=== PATIENT | female | born 1955 | race Caucasian/White ===

== ENCOUNTER 2017-10-27 10:31 | Emergency (ER) | payer BC ==
[~2017-10-27] VITALS: Ht 170.2 cm; Wt 90.0 kg
[2017-10-27 10:32] VITALS: BP 157/85; PULSE 99; RESP 20; TEMP 99.2; O2SAT 99
[2017-10-27] MEDS ORDERED: IOHEXOL 350 MG/ML 10 ML VIAL (for RAD DIAG) IVCONTRAST ONE (10:32)
[2017-10-27] MEDS ORDERED: SIMV40TA PO (10:59)
[2017-10-27] MEDS ORDERED: ENAL2.5T PO (10:59)
[2017-10-27] MEDS ORDERED: PROT40TA PO (10:59)
[2017-10-27] MEDS ORDERED: ASPI81CH6 CHEW (10:59)
[2017-10-27] MEDS ORDERED: PRED5TAB PO (10:59)
[2017-10-27] MEDS ORDERED: SODIUM CHLOR 0.9% 1000 ML INJ 1,000 ML IV SCH (11:26)
--- NOTE | 2017-10-27 11:28 | PD ---
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 Patient states that she has a history of diverticulosis but has never had diverticulitis before. No fevers states the pain is mild, left lower quadrant without radiation, associated signs symptoms context as above. States pain started last night is been gradually worsening. PFSH Past Medical History Influenza Vaccination: No ?: Not Past Surgical History Cholecystectomy: Yes Coronary Artery Bypass Graft: Yes (x3) Hysterectomy: Yes (parital ) Social History Alcohol Use: Yes (socially ) Tobacco Use: Yes (vape) Substance Use: No Allergies-Medications (Allergen,Severity, Reaction): Coded Allergies: No Known Allergies (Verified Allergy, Unknown, 10/27/17) Reported Meds & Prescriptions Reported Meds & Active Scripts Active Zofran (Ondansetron HCl) 4 Mg Tab 4 Mg PO Q6HR PRN Ultram (Tramadol HCl) 50 Mg Tab 50 Mg PO Q6H PRN Bentyl (Dicyclomine HCl) 10 Mg Cap 10 Mg PO TID PRN Flagyl (Metronidazole) 500 Mg Tab 500 Mg PO BID 7 Days Ciprofloxacin (Ciprofloxacin HCl) 500 Mg Tab 500 Mg PO BID 7 Days Reported Enalapril (Enalapril Maleate) 2.5 Mg Tab 2.5 Mg PO DAILY Aspirin Low Dose (Aspirin) 81 Mg Chew 81 Mg CHEW DAILY Prednisone 5 Mg Tab 5 Mg PO DAILY Protonix (Pantoprazole Sodium) 40 Mg Tab 40 Mg PO DAILY Simvastatin 40 Mg Tab 40 Mg PO HS Review of Systems Except as stated in HPI: all other systems reviewed are Neg Physical Exam Narrative GENERAL: Well-developed well-nourished no obvious distress SKIN: Focused skin assessment warm/dry. HEAD: Atraumatic. Normocephalic. EYES: Pupils equal and round. No scleral icterus. No injection or drainage. ENT: No nasal bleeding or discharge. Mucous membranes pink and moist. NECK: Trachea midline. No JVD. CARDIOVASCULAR: Regular rate and rhythm. No murmur appreciated. RESPIRATORY: No accessory muscle use. Clear to auscultation. Breath sounds equal bilaterally. GASTROINTESTINAL: Abdomen soft, moderate tenderness left lower quadrant without any rebound or percussive tenderness., nondistended. Hepatic and splenic margins not palpable. No CVA tenderness. MUSCULOSKELETAL: No obvious deformities. No clubbing. No cyanosis. No edema. NEUROLOGICAL: Awake and alert. No obvious cranial nerve deficits. Motor grossly within normal limits. Normal speech. PSYCHIATRIC: Appropriate mood and affect; insight and judgment normal. Data Data Last Documented VS Vital Signs Date Time Temp Pulse Resp B/P (MAP) Pulse Ox O2 Delivery O2 Flow Rate FiO2 10/27/17 14:11 10/27/17 10:32 99.2 99 20 99 Room Air Orders Orders Complete Blood Count With Diff (10/27/17 11:26) Comprehensive Metabolic Panel (10/27/17 11:26) Lipase (10/27/17 11:26) Prothrombin Time / Inr (Pt) (10/27/17 11:26) Act Partial Throm Time (Ptt) (10/27/17 11:26) Urinalysis - C+S If Indicated (10/27/17 11:26) Ct Abd/Pel W Iv Contrast(Rout) (10/27/17 11:26) Iv Access Insert/Monitor (10/27/17 11:26) Ecg Monitoring (10/27/17 11:26) Oximetry (10/27/17 11:26) Ondansetron Inj (Zofran Inj) (10/27/17 11:30) Sodium Chlor 0.9% 1000 Ml Inj (Ns 1000 M (10/27/17 11:26) Sodium Chloride 0.9% Flush (Ns Flush) (10/27/17 11:30) Electrocardiogram (10/27/17 11:26) Ketorolac Inj (Toradol Inj) (10/27/17 11:30) Urine Culture (10/27/17 11:40) Iohexol 350 Inj (Omnipaque 350 Inj) (10/27/17 10:32) Oxycodone-Acetamin 5-325 Mg (Percocet (10/27/17 13:45) Ed Discharge Order (10/27/17 13:40) Labs Laboratory Tests Test 10/27/17 11:37 10/27/17 11:40 White Blood Count 9.8 TH/MM3 Red Blood Count 4.71 MIL/MM3 Hemoglobin 14.2 GM/DL Hematocrit 42.9 % Mean Corpuscular Volume 91.2 FL Mean Corpuscular Hemoglobin 30.1 PG Mean Corpuscular Hemoglobin Concent 33.0 % Red Cell Distribution Width 14.0 % Platelet Count 333 TH/MM3 Mean Platelet Volume 8.9 FL Neutrophils (%) (Auto) 71.6 % Lymphocytes (%) (Auto) 15.6 % Monocytes (%) (Auto) 8.9 % Eosinophils (%) (Auto) 2.8 % Basophils (%) (Auto) 1.1 % Neutrophils # (Auto) 7.0 TH/MM3 Lymphocytes # (Auto) 1.5 TH/MM3 Monocytes # (Auto) 0.9 TH/MM3 Eosinophils # (Auto) 0.3 TH/MM3 Basophils # (Auto) 0.1 TH/MM3 CBC Comment DIFF FINAL Differential Comment Prothrombin Time 10.0 SEC Prothromb Time International Ratio 1.0 RATIO Activated Partial Thromboplast Time 25.0 SEC Blood Urea Nitrogen 15 MG/DL Creatinine 0.75 MG/DL Random Glucose 148 MG/DL Total Protein 7.2 GM/DL Albumin 3.3 GM/DL Calcium Level 8.5 MG/DL Alkaline Phosphatase 108 U/L Aspartate Amino Transf (AST/SGOT) 14 U/L Alanine Aminotransferase (ALT/SGPT) 24 U/L Total Bilirubin 0.3 MG/DL Sodium Level 139 MEQ/L Potassium Level 4.3 MEQ/L Chloride Level 105 MEQ/L Carbon Dioxide Level 27.1 MEQ/L Anion Gap 7 MEQ/L Estimat Glomerular Filtration Rate 78 ML/MIN Lipase 116 U/L Urine Color YELLOW Urine Turbidity HAZY Urine pH 6.0 Urine Specific Hawks 1.010 Urine Protein NEG mg/dL Urine Glucose (UA) NEG mg/dL Urine Ketones NEG mg/dL Urine Occult Blood NEG Urine Nitrite POS Urine Bilirubin NEG Urine Urobilinogen LESS THAN 2.0 MG/DL Urine Leukocyte Esterase LARGE Urine RBC 5 /hpf Urine WBC 43 /hpf Urine WBC Clumps OCC Urine Squamous Epithelial Cells 15 /hpf Urine Bacteria MANY /hpf Urine Mucus FEW /lpf Microscopic Urinalysis Comment CULTURE INDICATED MDM Medical Decision Making Medical Screen Exam Complete: Yes Emergency Medical Condition: Yes Differential Diagnosis Gastritis, gastroenteritis, diverticulitis, diverticular abscess, sepsis seems unlikely, UTI. Narrative Course Patient roomed in the emergency department, has blood work suggestive of UTI but the patient has not had any dysuria. She is moderately tender and has not presented to the emergency department and some years according to her, think it CAT scan is indicated to rule out a diverticular abscess. Last 24 hours Impressions Abdomen/Pelvis CT 10/27/17 1126 Signed Impressions: Service Date/Time: October 12:52 - CONCLUSION: 1. The above findings are diagnostic of a mild proximal sigmoid acute diverticulitis. No abscess, free air, or free fluid is present. 2. There is an 8mm right adrenal gland nodule that does not meet criteria for an adenoma on this study. The small size favors a benign process. Suggest correlating with prior studies to confirm stability. 3. Nonacute findings include severe atherosclerotic disease and hepatic steatosis. Todd Muse MD Discussed the findings with the patient and discussed follow-up with her primary care physician for the 8mm right adrenal gland nodule as well as continue not smoking and follow up with her primary care physician for atherosclerotic disease. She is feeling better after medications given in the emergency department but would like something stronger and therefore by mouth narcotic given. Discussed symptomatic management returned ED criteria. She stable for discharge. Diagnosis Primary Impression: Diverticulitis Additional Impression: Urinary tract infection Med/Other Pt SpecificInfo: Prescription(s) given Scripts Ondansetron (Zofran) 4 Mg Tab 4 MG PO Q6HR Y for NAUSEA OR VOMITING, #20 TAB 0 Refills Prov: Javier Cui MD 10/27/17 Tramadol (Ultram) 50 Mg Tab 50 MG PO Q6H Y for PAIN, #10 TAB 0 Refills Prov: Javier Cui MD 10/27/17 Dicyclomine (Bentyl) 10 Mg Cap 10 MG PO TID Y for ABDOMINAL CRAMPING, #20 CAP 0 Refills Prov: Javier Cui MD 10/27/17 Metronidazole (Flagyl) 500 Mg Tab 500 MG PO BID for Infection for 7 Days, #14 TAB 0 Refills Prov: Javier Cui MD 10/27/17 Ciprofloxacin (Ciprofloxacin) 500 Mg Tab 500 MG PO BID for Infection for 7 Days, #14 TAB 0 Refills Prov: Javier Cui MD 10/27/17 Disposition: 01 DISCHARGE HOME Condition: Stable Javier Cui MD Oct 27, 2017 11:28
[2017-10-27] MEDS ORDERED: KETOROLAC TROMETHAMINE 30 MG/ML (IVP) VIAL IVP ONE (11:30)
[2017-10-27] MEDS ORDERED: SODIUM CHLORIDE 0.9% FLUSH 10 ML FLUSH IV FLUSH PRN (11:30)
[2017-10-27] MEDS ORDERED: ONDANSETRON HCL 4 MG/2 ML VIAL IVP ONE (11:30)
[2017-10-27 11:49] LABS: BASOPHIL # 0.1 TH/MM3 (0-0.2); BASOPHIL % 1.1 % (0.0-2.0); EOSINOPHIL # 0.3 TH/MM3 (0-0.4); EOSINOPHIL % 2.8 % (0.0-4.0); HEMATOCRIT 42.9 % (35.0-46.0); HEMOGLOBIN 14.2 GM/DL (11.6-15.3); LYMPH % 15.6 % (9.0-44.0); LYMPHOCYTE # 1.5 TH/MM3 (1.0-4.8); MEAN CELL VOLUME 91.2 FL (80.0-100.0); MEAN CORPUSCULAR HEMOGLOBIN 30.1 PG (27.0-34.0); MEAN PLATELET VOLUME 8.9 FL (7.0-11.0); MONO % 8.9 % (0.0-8.0); MONOCYTE # 0.9 TH/MM3 (0-0.9); NEUT % 71.6 % (16.0-70.0); PLATELET COUNT 333 TH/MM3 (150-450); RED BLOOD COUNT 4.71 MIL/MM3 (4.00-5.30); WHITE BLOOD COUNT 9.8 TH/MM3 (4.0-11.0)
[2017-10-27 11:53] LABS: BACTERIA, URINE MANY /hpf; BILIRUBIN, URINE NEG (NEG); BLOOD, URINE NEG (NEG); GLUCOSE,URINE NEG (NEG); KETONE, URINE NEG (NEG); MUCUS URINE FEW /lpf (OCC); NITRITE,URINE POS (NEG); SQUAMOUS EPITHELIAL CELL URINE 15 /hpf (0-5); URINE COLOR YELLOW (YELLW/STRAW); URINE LEUKOCYTE ESTERASE LARGE (NEG); WHITE BLOOD CELL CLUMPS OCC
[2017-10-27 12:23] LABS: ALBUMIN 3.3 GM/DL (3.4-5.0); ALT (GPT) 24 U/L (10-53); AST (GOT) 14 U/L (15-37); BICARBONATE 27.1 MEQ/L (21.0-32.0); BLOOD UREA NITROGEN 15 MG/DL (7-18); CALCIUM 8.5 MG/DL (8.5-10.1); CHLORIDE 105 MEQ/L (98-107); CREATININE 0.75 MG/DL (0.50-1.00); GLOMERULAR FILTRATION RATE 78 ML/MIN (>89); GLUCOSE,RANDOM 148 MG/DL (74-106); LIPASE 116 U/L (73-393); SODIUM (NA) 139 MEQ/L (136-145)
[2017-10-27 12:26] LABS: ALKALINE PHOSPHATASE 108 U/L (45-117); TOTAL BILIRUBIN ADULT 0.3 MG/DL (0.2-1.0); TOTAL PROTEIN 7.2 GM/DL (6.4-8.2)
--- NOTE | 2017-10-27 13:21 | RADRPT ---
EXAM DATE/TIME: 10/27/2017 12:52 [facility] COMPARISON: No previous studies available for comparison. INDICATIONS : Left lower abdomen pain, radiating to right side. IV CONTRAST: 81 cc Omnipaque 350 (iohexol) IV ORAL CONTRAST: No oral contrast ingested. RADIATION DOSE: 15.70 CTDIvol (mGy) MEDICAL HISTORY : Cardiovascular disease. SURGICAL HISTORY : CABG , hysterectomy, cholecystectomy. ENCOUNTER: Initial ACUITY: 4 - 6 days PAIN SCALE: 7/10 LOCATION: [facility] TECHNIQUE: Volumetric scanning of the abdomen and pelvis was performed. Using automated exposure control and ad justment of the mA and/or kV according to patient size, radiation dose was kept as low as reasonably achievable to obtain optimal diagnostic quality images. DICOM format image data is available electro nically for review and comparison. FINDINGS: LOWER LUNGS: The visualized lower lungs are clear. LIVER: Liver density is suggested stenosis. No focal lesion is seen. There is a punctate calcification in th e right lobe. The gallbladder fossa there is a 13 mm cyst. Patient is post cholecystectomy. There is no dilation of the biliary tree. SPLEEN: Normal size without lesion. PANCREAS: Within normal limits. KIDNEYS: Normal in size and shape. There is no mass, stone or hydronephrosis. ADRENAL GLANDS: There is an 8mm right adrenal gland nodule with Hounsfield measurements of 14. There is mild thickeni ng of the body of the left adrenal gland. VASCULAR: There is severe atherosclerotic disease of aorta with ectasia. No aneurysm is present. BOWEL/MESENTERY: The stomach and small bowel demonstrate no abnormality. There is colonic diverticulosis, most severe in the sigmoid colon region. A short segment of the proximal sigmoid colon demonstrates mild wall thi ckening and pericolic inflammation. There is no free air or free fluid. ABDOMINAL WALL: Within normal limits. RETROPERITONEUM: There is no lymphadenopathy. BLADDER: No wall thickening or mass. REPRODUCTIVE: The uterus is absent. INGUINAL: There is no lymphadenopathy or hernia. MUSCULOSKELETAL: There are degenerative changes of the lumbar spine. CONCLUSION: 1. The above findings are diagnostic of a mild proximal sigmoid acute diverticulitis. No abscess, beti e air, or free fluid is present. 2. There is an 8mm right adrenal gland nodule that does not meet criteria for an adenoma on this stud y. The small size favors a benign process. Suggest correlating with prior studies to confirm stabilit y. 3. Nonacute findings include severe atherosclerotic disease and hepatic steatosis. Todd Muse MD on October 27, 2017 at 13:13 Board Certified Radiologist. This report was verified electronically.
[2017-10-27] MEDS ORDERED: DICY10 PO (13:39)
[2017-10-27] MEDS ORDERED: CIPR500T2 PO (13:39)
[2017-10-27] MEDS ORDERED: ZOFR4TAB PO (13:39)
[2017-10-27] MEDS ORDERED: METR-1 PO (13:39)
[2017-10-27] MEDS ORDERED: TRAM50 PO (13:39)
[2017-10-27] MEDS ORDERED: oxyCODONE/ACETAMINOPHEN 5 MG/325 MG TAB PO ONE (13:45)
--- NOTE | 2017-10-27 19:52 | EKG ---
Date Performed: 10/27/2017 Time Performed: 12:41:36 PTAGE: 61 years EKG: Baseline artifact present Sinus rhythm possible SEPTAL MYOCARDIAL INFARCTION ABNORMAL ECG NO PREVIOUS TRACING DOCTOR: Zion Pedro Interpretating Date/Time 10/27/2017 19:51:09
[2017-10-31] MEDS ORDERED: NORC5TAB PO (17:23)
== END 2017-10-27 14:18 | disposition home or self-care (01) ==
LOC: NEPD 10:31
DX: K57.92 Diverticulitis of intestine, part unspecified, without perforation or abscess without bleeding (principal); N39.0 Urinary tract infection, site not specified; R11.2 Nausea with vomiting, unspecified; B96.20 Unspecified Escherichia coli [E. coli] as the cause of diseases classified elsewhere; R94.31 Abnormal electrocardiogram [ECG] [EKG]; I70.90 Unspecified atherosclerosis; K76.0 Fatty (change of) liver, not elsewhere classified
CPT/HCPCS: 74177; 80053; 81001; 83690; 85025; 85610; 85730; 87077; 87086; 87186; 93005; 96361; 96374; 96375; 99285; J1885; J2405; J7030; Q9967

== ENCOUNTER 2017-10-31 12:33 | Emergency (ER) | payer BC ==
[2017-10-31 13:39] LABS: AUTOMATED NEUTROPHIL # 5.1 TH/MM3 (1.8-7.7); BASOPHIL # 0.1 TH/MM3 (0-0.2); BASOPHIL % 1.2 % (0.0-2.0); EOSINOPHIL # 0.3 TH/MM3 (0-0.4); EOSINOPHIL % 3.3 % (0.0-4.0); HEMATOCRIT 43.7 % (35.0-46.0); HEMO FLAGS DIFF FINAL; HEMOGLOBIN 14.2 GM/DL (11.6-15.3); LYMPH % 22.8 % (9.0-44.0); LYMPHOCYTE # 1.8 TH/MM3 (1.0-4.8); MEAN CELL VOLUME 91.1 FL (80.0-100.0); MEAN CORPUSCULAR HEMOGLOBIN 29.7 PG (27.0-34.0); MEAN CORPUSCULAR HGB CONC 32.6 % (32.0-36.0); MEAN PLATELET VOLUME 9.5 FL (7.0-11.0); MONO % 7.3 % (0.0-8.0); MONOCYTE # 0.6 TH/MM3 (0-0.9); NEUT % 65.4 % (16.0-70.0); PLATELET COUNT 350 TH/MM3 (150-450); RED BLOOD COUNT 4.79 MIL/MM3 (4.00-5.30); RED CELL DISTRIBUTION WIDTH 13.9 % (11.6-17.2); WHITE BLOOD COUNT 7.8 TH/MM3 (4.0-11.0)
[2017-10-31 13:50] LABS: PROTHROMBIN TIME - PATIENT 10.5 SEC (9.8-11.6)
[2017-10-31 13:59] LABS: ALBUMIN 3.4 GM/DL (3.4-5.0); ALT (GPT) 37 U/L (10-53); ANION GAP 8 MEQ/L (5-15); AST (GOT) 32 U/L (15-37); BICARBONATE 27.5 MEQ/L (21.0-32.0); BLOOD UREA NITROGEN 15 MG/DL (7-18); CALCIUM 9.1 MG/DL (8.5-10.1); CHLORIDE 102 MEQ/L (98-107); GLOMERULAR FILTRATION RATE 72 ML/MIN (>89); GLUCOSE,RANDOM 151 MG/DL (74-106); LIPASE 74 U/L (73-393); POTASSIUM 4.3 MEQ/L (3.5-5.1); SODIUM (NA) 137 MEQ/L (136-145)
[2017-10-31 14:02] LABS: ALKALINE PHOSPHATASE 98 U/L (45-117); TOTAL BILIRUBIN ADULT 0.2 MG/DL (0.2-1.0); TOTAL PROTEIN 7.4 GM/DL (6.4-8.2)
[2017-10-31] MEDS ORDERED: SODIUM CHLORIDE 0.9% FLUSH 10 ML FLUSH IV FLUSH (15:45)
[2017-10-31] MEDS: SODIUM CHLOR 0.9% 1000 ML INJ 1,000 ML IV (16:13)
[2017-10-31] MEDS: MORPHINE SULFATE 2 MG/ML INJ IV PUSH (16:13)
[2017-10-31] MEDS: ONDANSETRON HCL 4 MG/2 ML VIAL IVP (16:14)
[2017-10-31] MEDS: IOHEXOL 350 MG/ML 10 ML VIAL (for RAD DIAG) IVCONTRAST (16:50)
== END 2017-10-31 17:55 | disposition home or self-care (01) ==
LOC: NEPC 12:33
DX: K57.32 Diverticulitis of large intestine without perforation or abscess without bleeding (principal); N30.00 Acute cystitis without hematuria; Z72.0 Tobacco use
CPT/HCPCS: 74177; 80053; 83690; 85025; 85610; 85730; 96361; 96374; 96375; 99285-25

== ENCOUNTER → 2018-01-16 | Outpatient (CLI) | payer BC ==
[~2018-01-16] MED LIST: ASPI81CH6 CHEW; CIPR500T2 PO; DICY10 PO; ENAL2.5T PO; METR-1 PO; NORC5TAB PO; PRED5TAB PO; PROT40TA PO; SIMV40TA PO; TRAM50 PO; ZOFR4TAB PO
--- NOTE | 2018-01-17 10:44 | RSPPFT ---
DATE OF PROCEDURE: 01/16/18 COMMENTS: Spirometry shows FVC of 3.3 at 102% of predicted, FEV1 of 2.5 at 98%, FEV1/FVC ratio is normal. Flow is normal at FEF 25, FEF 50, FEF 75 and FEF 25-75. There is no response after bronchodilator treatment. Flow volume loop indicates a normal pattern. IMPRESSION: 1. Normal spirometry. 2. No response to bronchodilator treatment.
== END ==
LOC: PHRSP 07:42
PROVIDERS: ATTEND Family Medicine
DX: J44.9 Chronic obstructive pulmonary disease, unspecified (principal)
CPT/HCPCS: 94060

== ENCOUNTER 2018-05-11 15:41 | Observation (INO) ==
--- NOTE | 2018-05-11 16:35 | ED ---
HPI General Chief Complaint: Arrhythmia/Palpitations Stated Complaint: Cardiac Time Seen by Provider: 05/11/18 16:19 Source: patient Mode of arrival: ambulatory Limitations: no limitations History of Present Illness HPI Narrative: 62-year-old female. Patient arrives by EMS. For the last couple weeks she has had palpitations, anxiety, dizziness, decreased appetite and generalized sense of weakness. She reports significant personal stress lately. She has a history of coronary artery disease evidently with CABG. She denies history of atrial fibrillation. No new or different medication or change in medication dose. Patient reports drinking alcohol every 2 weeks approximately with no change. No history of smoking. The patient reports checking the radial artery yielding an irregular rhythm. Symptoms are more or less constant. She does not have chest pain specifically. She does not have shortness of breath. Related Data Home Medications Medication Instructions Recorded Confirmed albuterol sulfate [ProAir HFA] 2 puff INHALATION Q4H PRN 05/11/18 05/11/18 aspirin [Aspir-81] 81 mg PO DAILY 05/11/18 05/11/18 enalapril maleate 2.5 mg PO DAILY 05/11/18 05/11/18 metformin 500 mg PO BID 05/11/18 05/11/18 montelukast 10 mg PO QPM 05/11/18 05/11/18 pantoprazole 20 mg PO DAILY 05/11/18 05/11/18 simvastatin 20 mg PO QPM 05/11/18 05/11/18 venlafaxine 37.5 mg PO BID 05/11/18 05/11/18 Allergies Allergy/AdvReac Type Severity Reaction Status Date / Time No Known Allergies Allergy Verified 05/11/18 16:17 Review of Systems Except as stated in HPI: all other systems reviewed are negative Constitutional Reports as per HPI and Denies fever(s) Eyes Denies decreased night vision [facility] Medical History Medical History Asthma (Acute) Depression (Acute) Diabetes (Acute) H/O: hysterectomy (Acute) High cholesterol (Acute) Hypertension (Acute) Surgical History Surgical History H/O varicose vein ligation (Acute) Hx of cholecystectomy (Acute) Hx of heart bypass surgery (Acute) Social History Social History Smoking Status: Heavy tobacco smoker Tobacco Type: Cigarettes How Often Do You Have a Drink Containing Alcohol: Never Recent Travel in [facility] within the Last 8 Weeks: No Recent Out of Country Travel within the Last 8 Weeks: No Exam Narrative Exam Narrative: GENERAL: 62 yo F, WNWD, mildly anxious, pleasant SKIN: Focused skin assessment warm/dry. HEAD: Atraumatic. Normocephalic. EYES: Pupils equal and round. No scleral icterus. No injection or drainage. ENT: No nasal bleeding or discharge. Mucous membranes pink and moist. NECK: Trachea midline. No JVD. CARDIOVASCULAR: Rhythm is regular. RESPIRATORY: No accessory muscle use. Clear to auscultation. Breath sounds equal bilaterally. GASTROINTESTINAL: Abdomen soft, non-tender, nondistended. Hepatic and splenic margins not palpable. MUSCULOSKELETAL: No obvious deformities. No clubbing. No cyanosis. No edema. NEUROLOGICAL: Awake and alert. No obvious cranial nerve deficits. Motor grossly within normal limits. Normal speech. PSYCHIATRIC: Pleasant. cooperative. Course Initial Documented Vital Signs Temperature 99.1 F 05/11/18 16:10 Pulse Rate 82 05/11/18 16:10 Respiratory Rate 18 05/11/18 16:10 Blood Pressure 161/76 H 05/11/18 16:10 Pulse Oximetry 96 05/11/18 16:10 Last Documented Vital Signs Temperature 99.1 F 05/11/18 16:10 Pulse Rate 82 05/11/18 16:10 Respiratory Rate 18 05/11/18 17:45 Blood Pressure 161/76 H 05/11/18 16:10 Pulse Oximetry 96 05/11/18 16:25 Medical Decision Making [facility] Narrative Medical decision making narrative: UA: UTI present U drug: positive for cocaine The patient reports having essentially exactly same symptoms prior to the diagnosis of myocardial infarction 10 years prior. We will perform place the patient in the chest pain center for overnight evaluation. Certainly cocaine abuse may account for symptoms. Patient however does not agrees with this. A provocative study is considered reasonable next step to exclude coronary disease. Lab Data Lab results reviewed: Yes I reviewed the patient's lab results. Result diagrams: 05/11/18 16:28 05/11/18 16:28 Lab Results 05/11/18 05/11/18 05/11/18 Range/Units 16:28 16:28 16:28 WBC 8.6 (4.0-11.0) th/mm3 RBC 4.57 (4.00-5.30) mil/mm3 Hgb 13.8 (11.6-15.3) gm/dL Hct 41.5 (35.0-46.0) % MCV 90.8 (80.0-100.0) fL MCH 30.1 (27.0-34.0) pg MCHC 33.2 (32.0-36.0) % RDW 15.5 (11.6-17.2) % Plt Count 264 (150-450) th/mm3 MPV 9.7 (7.0-11.0) fL Neut % (Auto) 79.8 H (16.0-70.0) % Lymph % (Auto) 11.7 (9.0-44.0) % [place] % (Auto) 6.6 (0.0-8.0) % Eos % (Auto) 0.7 (0.0-4.0) % Baso % (Auto) 1.2 (0.0-2.0) % Neut # (Auto) 6.9 (1.8-7.7) th/mm3 Lymph # (Auto) 1.0 (1.0-4.8) th/mm3 [place] # (Auto) 0.6 (0.0-0.9) th/mm3 Eos # (Auto) 0.1 (0.0-0.4) th/mm3 Baso # (Auto) 0.1 (0.0-0.2) th/mm3 WBC Differential . Differential Comment Auto diff final PT 9.6 L (9.8-11.6) sec INR 0.9 Ratio APTT 22.4 L (24.3-30.1) sec Sodium (136-145) meq/L Potassium (3.5-5.1) meq/L Chloride (98-107) meq/L Carbon Dioxide (21.0-32.0) meq/L Anion Gap (5-15) meq/L BUN (7-18) mg/dL Creatinine (0.50-1.00) mg/dL Estimated GFR (>89) mL/min Random Glucose (74-106) mg/dL Calcium (8.5-10.1) mg/dL Magnesium 2.1 (1.5-2.5) mg/dL Total Bilirubin (0.2-1.0) mg/dL AST (15-37) U/L ALT (10-53) U/L Alkaline Phosphatase (45-117) U/L Total Creatine Kinase 74 (26-192) U/L Troponin I Less than 0.02 L (0.02-0.05) ng/mL B-Natriuretic Peptide (0-100) pg/mL Total Protein (6.4-8.2) g/dL Albumin (3.4-5.0) g/dL Urine Color (Yellw/Straw) Urine Clarity (Clear) Urine pH (5.0-8.5) Ur Specific [place] (1.002-1.035) Urine Protein (Neg-Trace) mg/dL Urine Glucose (UA) (Negative) mg/dL Urine Ketones (Negative) mg/dL Urine Occult Blood (Negative) Urine Nitrate (Negative) Urine Bilirubin (Negative) Urine Urobilinogen (Less than 2) mg/dL Ur Leukocyte Esterase (Negative) Urine RBC (0-3) /hpf Urine WBC (0-5) /hpf Ur Squamous Epith Cells (0-5) /hpf Amorphous Sediment (None) /hpf Urine Bacteria (None) /hpf Urine Mucus (Occasional) /lpf Urine Opiates Screen (Neg) Ur Barbiturates Screen (Neg) Ur Amphetamines Screen (Neg) U Benzodiazepines Scrn (Neg) Urine Cocaine Screen (Neg) U Cannabinoids Screen (Neg) Serum Alcohol Less than 3 (0-5) mg/dL 05/11/18 05/11/18 05/11/18 Range/Units 16:28 16:28 17:45 WBC (4.0-11.0) th/mm3 RBC (4.00-5.30) mil/mm3 Hgb (11.6-15.3) gm/dL Hct (35.0-46.0) % MCV (80.0-100.0) fL MCH (27.0-34.0) pg MCHC (32.0-36.0) % RDW (11.6-17.2) % Plt Count (150-450) th/mm3 MPV (7.0-11.0) fL Neut % (Auto) (16.0-70.0) % Lymph % (Auto) (9.0-44.0) % [place] % (Auto) (0.0-8.0) % Eos % (Auto) (0.0-4.0) % Baso % (Auto) (0.0-2.0) % Neut # (Auto) (1.8-7.7) th/mm3 Lymph # (Auto) (1.0-4.8) th/mm3 [place] # (Auto) (0.0-0.9) th/mm3 Eos # (Auto) (0.0-0.4) th/mm3 Baso # (Auto) (0.0-0.2) th/mm3 WBC Differential Differential Comment PT (9.8-11.6) sec INR Ratio APTT (24.3-30.1) sec Sodium 141 (136-145) meq/L Potassium 4.3 (3.5-5.1) meq/L Chloride 106 (98-107) meq/L Carbon Dioxide 25.1 (21.0-32.0) meq/L Anion Gap 10 (5-15) meq/L BUN 16 (7-18) mg/dL Creatinine 0.87 (0.50-1.00) mg/dL Estimated GFR 66 L (>89) mL/min Random Glucose 115 H (74-106) mg/dL Calcium 8.6 (8.5-10.1) mg/dL Magnesium (1.5-2.5) mg/dL Total Bilirubin 0.1 L (0.2-1.0) mg/dL AST 16 (15-37) U/L ALT 24 (10-53) U/L Alkaline Phosphatase 90 (45-117) U/L Total Creatine Kinase (26-192) U/L Troponin I (0.02-0.05) ng/mL B-Natriuretic Peptide 30 (0-100) pg/mL Total Protein 6.6 (6.4-8.2) g/dL Albumin 3.2 L (3.4-5.0) g/dL Urine Color (Yellw/Straw) Urine Clarity (Clear) Urine pH (5.0-8.5) Ur Specific [place] (1.002-1.035) Urine Protein (Neg-Trace) mg/dL Urine Glucose (UA) (Negative) mg/dL Urine Ketones (Negative) mg/dL Urine Occult Blood (Negative) Urine Nitrate (Negative) Urine Bilirubin (Negative) Urine Urobilinogen (Less than 2) mg/dL Ur Leukocyte Esterase (Negative) Urine RBC (0-3) /hpf Urine WBC (0-5) /hpf Ur Squamous Epith Cells (0-5) /hpf Amorphous Sediment (None) /hpf Urine Bacteria (None) /hpf Urine Mucus (Occasional) /lpf Urine Opiates Screen Neg (Neg) Ur Barbiturates Screen Neg (Neg) Ur Amphetamines Screen Neg (Neg) U Benzodiazepines Scrn Neg (Neg) Urine Cocaine Screen Pos H (Neg) U Cannabinoids Screen Neg (Neg) Serum Alcohol (0-5) mg/dL 05/11/18 Range/Units 17:45 WBC (4.0-11.0) th/mm3 RBC (4.00-5.30) mil/mm3 Hgb (11.6-15.3) gm/dL Hct (35.0-46.0) % MCV (80.0-100.0) fL MCH (27.0-34.0) pg MCHC (32.0-36.0) % RDW (11.6-17.2) % Plt Count (150-450) th/mm3 MPV (7.0-11.0) fL Neut % (Auto) (16.0-70.0) % Lymph % (Auto) (9.0-44.0) % [place] % (Auto) (0.0-8.0) % Eos % (Auto) (0.0-4.0) % Baso % (Auto) (0.0-2.0) % Neut # (Auto) (1.8-7.7) th/mm3 Lymph # (Auto) (1.0-4.8) th/mm3 [place] # (Auto) (0.0-0.9) th/mm3 Eos # (Auto) (0.0-0.4) th/mm3 Baso # (Auto) (0.0-0.2) th/mm3 WBC Differential Differential Comment PT (9.8-11.6) sec INR Ratio APTT (24.3-30.1) sec Sodium (136-145) meq/L Potassium (3.5-5.1) meq/L Chloride (98-107) meq/L Carbon Dioxide (21.0-32.0) meq/L Anion Gap (5-15) meq/L BUN (7-18) mg/dL Creatinine (0.50-1.00) mg/dL Estimated GFR (>89) mL/min Random Glucose (74-106) mg/dL Calcium (8.5-10.1) mg/dL Magnesium (1.5-2.5) mg/dL Total Bilirubin (0.2-1.0) mg/dL AST (15-37) U/L ALT (10-53) U/L Alkaline Phosphatase (45-117) U/L Total Creatine Kinase (26-192) U/L Troponin I (0.02-0.05) ng/mL B-Natriuretic Peptide (0-100) pg/mL Total Protein (6.4-8.2) g/dL Albumin (3.4-5.0) g/dL Urine Color Yellow (Yellw/Straw) Urine Clarity Hazy H (Clear) Urine pH 6.0 (5.0-8.5) Ur Specific [place] 1.014 (1.002-1.035) Urine Protein Negative (Neg-Trace) mg/dL Urine Glucose (UA) 50 (Negative) mg/dL Urine Ketones Negative (Negative) mg/dL Urine Occult Blood Negative (Negative) Urine Nitrate Negative (Negative) Urine Bilirubin Negative (Negative) Urine Urobilinogen Less than 2 (Less than 2) mg/dL Ur Leukocyte Esterase Trace H (Negative) Urine RBC Less than 1 (0-3) /hpf Urine WBC 7 H (0-5) /hpf Ur Squamous Epith Cells 9 (0-5) /hpf Amorphous Sediment Rare H (None) /hpf Urine Bacteria Rare H (None) /hpf Urine Mucus Few H (Occasional) /lpf Urine Opiates Screen (Neg) Ur Barbiturates Screen (Neg) Ur Amphetamines Screen (Neg) U Benzodiazepines Scrn (Neg) Urine Cocaine Screen (Neg) U Cannabinoids Screen (Neg) Serum Alcohol (0-5) mg/dL EKGS: sinus, ST changes multiple leads are non-specific, rate 78 Imaging Data Radiologist's impression: Chest X-Ray 05/11/18 16:25 CONCLUSION: No acute intrathoracic disease. ECG Data Interpretation: EKG: sinus, rate 78, non-specific ST changes multiple leads Discharge Plan Discharge Disposition Patient Disposition: 30 Still Patient Physicians Team ED Provider: Eb Rea Primary Care Provider: UNKNOWN, Attending Provider: Adam London Status ED Status: Admitted Observation Patient
--- NOTE | 2018-05-11 16:43 | XR ---
EXAM DATE: 05/11/2018 4:41 PM EDT AGE/SEX: 62 years / Female INDICATIONS: Chest pain CLINICAL DATA: This is the patient's initial encounter. Patient reports that signs and symptoms have been present for 2 months and indicates a pain score of 0/10. MEDICAL/SURGICAL HISTORY: Diabetes mellitus type II. CABG. COMPARISON: No prior exams available for comparison. FINDINGS: A single AP view of the chest demonstrates the lungs to be symmetrically aerated without evidence of mass, infiltrate or effusion. The cardiomediastinal contours are unremarkable. There is evidence of previous cardiothoracic surgery. Osseous structures are intact. CONCLUSION: No acute intrathoracic disease. Electronically signed by: John Rodriguez MD 05/11/2018 4:42 PM EDT
[2018-05-11 16:52] LABS: Baso # (Auto) 0.1 th/mm3 (0.0-0.2); Baso % (Auto) 1.2 % (0.0-2.0); Eos # (Auto) 0.1 th/mm3 (0.0-0.4); Eos % (Auto) 0.7 % (0.0-4.0); Hematocrit 41.5 % (35.0-46.0); Hemoglobin 13.8 gm/dL (11.6-15.3); Lymph % (Auto) 11.7 % (9.0-44.0); Mean Corpuscular HGB Conc 33.2 % (32.0-36.0); Mean Corpuscular Hemoglobin 30.1 pg (27.0-34.0); Mean Corpuscular Volume 90.8 fL (80.0-100.0); Mean Platelet Volume 9.7 fL (7.0-11.0); Mono # (Auto) 0.6 th/mm3 (0.0-0.9); Mono % (Auto) 6.6 % (0.0-8.0); Neut # (Auto) 6.9 th/mm3 (1.8-7.7); Neut % (Auto) 79.8 % (16.0-70.0); Platelet Count 264 th/mm3 (150-450); Red Blood Count 4.57 mil/mm3 (4.00-5.30); Red Cell Distribution Width 15.5 % (11.6-17.2); White Blood Count 8.6 th/mm3 (4.0-11.0)
[2018-05-11 16:53] LABS: Activated Partial Thrombo Time 22.4 sec (24.3-30.1); INR 0.9 Ratio; Prothrombin Time 9.6 sec (9.8-11.6)
[2018-05-11 17:10] LABS: Magnesium 2.1 mg/dL (1.5-2.5)
[2018-05-11 17:13] LABS: Creatine Kinase 74 U/L (26-192)
[2018-05-11 18:05] LABS: Amphetamine Screen,Urine Neg (Neg); Barbiturate Screen,Urine Neg (Neg); Cannabinoid Screen,Urine Neg (Neg); Cocaine Screen,Urine Pos (Neg)
[2018-05-11] MEDS ORDERED: Acetaminophen 325 MG Tablet PO ONE (18:16)
[2018-05-11 18:17] LABS: Amorphous Sediment,Urine Rare /hpf; Bacteria,Urine Rare /hpf; Bilirubin,Urine Negative (Negative); Clarity,Urine Hazy (Clear); Color,Urine Yellow (Yellw/Straw); Glucose,Urine (UA) 50 mg/dL (Negative); Leukocyte Esterase,Urine Trace (Negative); Mucus,Urine Few /lpf (Occasional); Nitrite,Urine Negative (Negative); Specific Gravity,Urine 1.014 (1.002-1.035); Squamous Epithelial Cell,Urine 9 /hpf (0-5)
[2018-05-11 18:22] LABS: Opiate Screen,Urine Neg (Neg)
[2018-05-11 19:46] LABS: Albumin 3.2 g/dL (3.4-5.0); Anion Gap 10 meq/L (5-15); Aspartate Aminotransferase 16 U/L (15-37); Blood Urea Nitrogen 16 mg/dL (7-18); Calcium 8.6 mg/dL (8.5-10.1); Carbon Dioxide 25.1 meq/L (21.0-32.0); Chloride 106 meq/L (98-107); Glomerular Filtration Rate 66 mL/min (>89); Glucose,Random 115 mg/dL (74-106); Potassium 4.3 meq/L (3.5-5.1); Sodium 141 meq/L (136-145)
[2018-05-11 19:47] LABS: Alanine Aminotransferase 24 U/L (10-53)
[2018-05-11 19:49] LABS: Alkaline Phosphatase 90 U/L (45-117); Total Protein 6.6 g/dL (6.4-8.2)
[2018-05-11] MEDS ORDERED: Temazepam 15 MG Capsule PO PRN (20:13)
[2018-05-11] MEDS ORDERED: Morphine Inj 4 MG/ML Vial IV.PUSH PRN (20:13)
[2018-05-11] MEDS ORDERED: Acetaminophen 500 MG Tablet PO PRN (20:13)
[2018-05-11] MEDS ORDERED: ALPRAZolam 0.25 MG Tablet PO PRN (20:13)
[2018-05-11 22:44] LABS: Creatine Kinase 66 U/L (26-192)
[2018-05-12 00:35] LABS: Creatine Kinase 65 U/L (26-192)
[2018-05-12 07:26] VITALS: BP 149/73; RESP 14; TEMP 97.5
[2018-05-12 08:04] VITALS: PULSE 61
[2018-05-12 09:02] VITALS: O2SAT 98
[2018-05-12] MEDS ORDERED: Venlafaxine XR 37.5 MG Capsule PO SCH (09:15)
[2018-05-12] MEDS ORDERED: Pantoprazole Sodium 20 MG DR Tablet PO SCH (09:15)
--- NOTE | 2018-05-12 09:42 | P.HPCA ---
History of Present Illness Primary Care Physician: Dr. Yasmeen Frost Chief Complaint: Palpations History of Present Illness: 62-year-old female with history of CABG 3, hypertension, hyperlipidemia, rheumatoid arthritis, and recently diagnosed type 2 diabetes presents emergency room for further evaluation of palpations. Onset x1. Increasing in intensity and duration. Describes a throbbing heart beat, followed by a pause, before returning to throbbing heart beat. Describes heart beat as irregular in rate. Associated symptoms include dyspnea and headache. Denies loss of consciousness. No history of known arrhythmias. Yesterday went to her [facility] for further evaluation. BP reported to be 174/100. PCP directed her to ER for further evaluation. Denies chest discomfort during palpations, however does experience intermittent, nonexertional chest discomfort. Characterized as slight discomfort, "nothing like before my heart attack." No radiation. Location substernal. No associated symptoms. No known precipitating or relieving factors. Moved from [place] 1.5 years ago and has not established with a assistant plant control operator. Past cardiac testing CABGx3 (2007-) s/p [place]. Chest discomfort including at time of FL substernal, heavy pressure, radiation to left arm left-sided jaw. With accompanying shortness of breath. States was a STEMI alert, required CABG due to severe disease. No recent cardiac testing. Does not follow with a assistant plant control operator. - Diagnosis (1) Heart palpitations (2) Hx of CABG (3) Cocaine abuse (4) Type II diabetes mellitus (5) Asthma (6) Tobacco abuse Review of Systems All other systems reviewed negative except as stated in HPI Constitutional: Reports daytime sleepiness, Reports fatigue, Reports headache(s) , Denies fever(s) Ears, Nose, Mouth, and Throat: Reports dizziness Cardiovascular: Reports chest pain at rest, Reports fast heart rate, Reports irregular heart rhythm, Reports lightheadedness, Denies chest pain with activity Respiratory: Reports shortness of breath, Denies chest congestion, Denies cough , Denies coughing up blood, Denies excessive phlegm production, Denies pain on inspiration, Denies pain with cough Comments: Chronic dyspnea, states having pulmonary testing in past but never told if she has COPD or asthma. Chronic dyspnea stable. Gastrointestinal: Denies change in bowel habits, Denies change in stools Musculoskeletal: Reports joint pain Comments: bilateral chronic hip pain due to arthritis Neurologic: Reports dizziness, Reports headache(s), Denies fainting, Denies sensory deficit, Denies tingling, Denies tingling/numbness/burning sensations, Denies weakness PMFSH - History History Provided By: Patient - Medical History Medical History: Medical History (Last Updated 05/12/18 @ 10:16 by ASTRID Monet) Asthma Cataracts, bilateral Depression Diabetes Diverticulosis H/O: hysterectomy High cholesterol Hypertension Rheumatoid arthritis - Surgical History Surgical History: Surgical History (Last Updated 05/11/18 @ 16:34 by Manisha Townsend) H/O varicose vein ligation Hx of cholecystectomy Hx of heart bypass surgery - Family History Family History: Family History (Last Updated 05/12/18 @ 11:17 by ASTRID Monet) Father Family history of acute myocardial infarction Hx of CABG - Tobacco History Second Hand Smoke Exposure: No Tobacco Use In Past 30 Days: No ("vapes" daily) Smoking Status: Former smoker Tobacco Type: Cigarettes Packs Per Day: 1 Years Smoked: 40 Smoking End Date: June 2017 - Alcohol History How Often Do You Have a Drink Containing Alcohol: 2 to 4 times a month - Substance Use History Substance History: No History of Abuse - Travel History History of Recent Travel: No Recent Travel in the [place] Within the Last 8 Weeks: No Recent Travel Out of the Country Within the Last 8 Weeks: No - Immunization History Tetanus Immunization: Unsure Hx Influenza Vaccine This Season: No Medications and Allergies Active Medications: Active Medications Acetaminophen (Tylenol) 500 mg PO Q4H PRN PRN Reason: HEADACHE Hydrocodone Bitart/Acetaminophen ([place] 7.5/325) 1 tab PO Q4H PRN PRN Reason: PAIN SCALE 1 TO 7 Albuterol (Ventolin Hfa Inh) 2 puff INH Q4H PRN PRN Reason: Shortness Of Breath Alprazolam (Xanax) 0.25 mg PO Q8H PRN PRN Reason: ANXIETY Aspirin (Aspirin) 325 mg PO DAILY [facility] Enalapril Maleate (Vasotec) 2.5 mg PO DAILY [facility] Montelukast Sodium (Singulair) 10 mg PO HS [facility] Morphine Sulfate (Morphine Inj) 2 mg IV.PUSH Q4H PRN PRN Reason: PAIN SCALE 8 TO 10 Nitroglycerin (Nitrostat Sl) 0.4 mg SL Q5M PRN PRN Reason: CHEST PAIN Ondansetron HCl (Zofran Inj) 4 mg IV.PUSH Q6H PRN PRN Reason: NAUSEA Pantoprazole Sodium (Protonix) 20 mg PO DAILY [facility] Pravastatin Sodium (Pravachol) 40 mg PO HS [facility] Sodium Chloride (Ns Flush) 2 ml IV.FLUSH UNSCH PRN PRN Reason: FLUSH AFTER USING IV ACCESS Sodium Chloride (Ns Flush) 2 ml IV.FLUSH BID [facility] Last Admin: 05/12/18 01:01 Dose: 2 ml Sodium Chloride (Ns Flush) 2 ml IV.FLUSH PRN PRN PRN Reason: FLUSH AFTER USING IV ACCESS Temazepam (Restoril) 15 mg PO HS PRN PRN Reason: INSOMNIA Venlafaxine HCl (Effexor Xr) 37.5 mg PO BID [facility] Allergies Allergy/AdvReac Type Severity Reaction Status Date / Time No Known Allergies Allergy Verified 05/11/18 16:17 Home Medications Medication Instructions Recorded Confirmed Type albuterol sulfate [ProAir HFA] 2 puff INHALATION Q4H PRN 05/11/18 05/11/18 History aspirin [Aspir-81] 81 mg PO DAILY 05/11/18 05/11/18 History enalapril maleate 2.5 mg PO DAILY 05/11/18 05/11/18 History metformin 500 mg PO BID 05/11/18 05/11/18 History pantoprazole 20 mg PO DAILY 05/11/18 05/11/18 History simvastatin 20 mg PO QPM 05/11/18 05/11/18 History Exam Vital signs: Vital Signs 05/11/18 16:10 05/11/18 16:25 05/11/18 17:45 Temperature 99.1 F Pulse Rate 82 Respiratory Rate 18 18 Blood Pressure 161/76 H Pulse Oximetry 96 96 05/11/18 21:11 05/11/18 21:45 05/11/18 23:34 Temperature 98.0 F 98 F Pulse Rate 64 72 73 Respiratory Rate 18 18 18 Blood Pressure 154/78 H 147/72 H 110/64 Pulse Oximetry 99 98 95 05/12/18 01:02 05/12/18 03:59 05/12/18 07:21 Temperature 98.1 F 97.5 F L Pulse Rate 70 71 73 Respiratory Rate 17 18 14 Blood Pressure 105/62 149/73 H Pulse Oximetry 94 L 97 05/12/18 08:04 05/12/18 08:47 Temperature Pulse Rate 61 Respiratory Rate Blood Pressure Pulse Oximetry 98 Intake & Output 05/11/18 05/12/18 05/12/18 18:59 06:59 18:59 Weight 90.718 kg Narrative: GENERAL: Alert WN, WD, NAD, pleasant, female appears older than stated age HEAD: NC, AT EYES: Sclera clear, conjunctiva without injection, pupils equal and round ENT: Mucous membranes pink and moist NECK: Supple, no masses, trachea midline CV: RRR, without murmur, rub, gallop, no JVD, S1-S2 no S3-S4. No carotid bruits. Chest wall nontender with palpation. RESP: Clear lungs throughout bilateral, diminished bases, no crackles, wheeze, rhonchi, symmetrical chest rise, nonlabored, able to speak in full sentences ABD: Soft, NT, ND, no masses, positive bowel tones EXT: Pulses +2x4, no dependent edema, bilateral lower extremities varicosities MS: Normal tone x4 extremities, nontender, no obvious deformities, full range of motion NEURO: CN II through CN XII grossly intact, motor strength 5/5 PSYCH: A+O x3, flat affect, appropriate speech, mood, insight and judgment SKIN: Normal turgor, normal texture, no lesions, no rashes, even hair distribution, multiple tattoos, solar damage Results 05/11/18 16:28 05/11/18 16:28 Cardiac Enzymes 05/11/18 05/11/18 05/11/18 Range/Units 16:28 16:28 16:28 AST 16 (15-37) U/L Troponin I Less than 0.02 L (0.02-0.05) ng/mL B-Natriuretic Peptide 30 (0-100) pg/mL 05/11/18 05/11/18 Range/Units 21:55 23:15 AST (15-37) U/L Troponin I Less than 0.02 L Less than 0.02 L (0.02-0.05) ng/mL B-Natriuretic Peptide (0-100) pg/mL Coagulation 18 05/11/18 Range/Units 16:28 16:28 PT 9.6 L (9.8-11.6) sec APTT 22.4 L (24.3-30.1) sec B-Natriuretic Peptide 30 (0-100) pg/mL CBC 05/11/18 Range/Units 16:28 WBC 8.6 (4.0-11.0) th/mm3 RBC 4.57 (4.00-5.30) mil/mm3 Hgb 13.8 (11.6-15.3) gm/dL Hct 41.5 (35.0-46.0) % Plt Count 264 (150-450) th/mm3 Neut # (Auto) 6.9 (1.8-7.7) th/mm3 Lymph # (Auto) 1.0 (1.0-4.8) th/mm3 [place] # (Auto) 0.6 (0.0-0.9) th/mm3 Eos # (Auto) 0.1 (0.0-0.4) th/mm3 Baso # (Auto) 0.1 (0.0-0.2) th/mm3 Comprehensive Metabolic Panel 05/11/18 Range/Units 16:28 Sodium 141 (136-145) meq/L Potassium 4.3 (3.5-5.1) meq/L Chloride 106 (98-107) meq/L Carbon Dioxide 25.1 (21.0-32.0) meq/L BUN 16 (7-18) mg/dL Creatinine 0.87 (0.50-1.00) mg/dL Calcium 8.6 (8.5-10.1) mg/dL AST 16 (15-37) U/L ALT 24 (10-53) U/L Alkaline Phosphatase 90 (45-117) U/L Total Protein 6.6 (6.4-8.2) g/dL Albumin 3.2 L (3.4-5.0) g/dL Intake and Output 05/11/18 05/12/18 05/12/18 22:59 06:59 14:59 Other: Weight 90.718 kg EKG interpretations - EKG EKG results cardiology: sinus rhythm, normal axis (NSR, nonspecific ST-T segment change) Caprini VTE Risk Assessment Caprini VTE Risk Assessment: Moderate/High Risk (score >= 2) Caprini Risk Assessment Model: Point Value = 1 Point Value = 2 Point Value = 3 Point Value = 5 Age 41-60 Minor surgery BMI > 25 kg/m2 Swollen legs Varicose veins or History of unexplained or recurrent spontaneous Oral contraceptives or hormone replacement Sepsis (< 1 month) Serious lung disease, including pneumonia (< 1 month) Abnormal pulmonary function Acute myocardial infarction Congestive heart failure (< 1 month) History of inflammatory bowel disease Medical patient at bed rest Age 61-74 Arthroscopic surgery Major open surgery (> 45 min) Laparoscopic surgery (> 45 min) Malignancy Confined to bed (> 72 hours) Immobilizing plaster cast Central venous access Age >= 75 History of VTE Family history of VTE Factor V Leiden Prothrombin [id number] Lupus anticoagulant Anticardiolipin antibodies Elevated serum homocysteine Heparin-induced thrombocytopenia Other congenital or acquired thrombophilia Stroke (< 1 month) Elective arthroplasty Hip, pelvis, or leg fracture Acute spinal cord injury (< 1 month) Prophylaxis Regimen: Total Risk Factor Score Risk Level Prophylaxis Regimen 0-1 Low Early ambulation 2 Moderate Order ONE of the following: *Sequential Compression Device (SCD) *Heparin 5000 units SQ BID 3-4 Higher Order ONE of the following medications: *Heparin 5000 units SQ TID *Enoxaparin/Lovenox 40 mg SQ daily (WT < 150 kg, CrCl > 30 mL/min) *Enoxaparin/Lovenox 30 mg SQ daily (WT < 150 kg, CrCl > 10-29 mL/min) *Enoxaparin/Lovenox 30 mg SQ BID (WT < 150 kg, CrCl > 30 mL/min) AND/OR *Sequential Compression Device (SCD) 5 or more Highest Order ONE of the following medications: *Heparin 5000 units SQ TID (Preferred with Epidurals) *Enoxaparin/Lovenox 40 mg SQ daily (WT < 150 kg, CrCl > 30 mL/min) *Enoxaparin/Lovenox 30 mg SQ daily (WT < 150 kg, CrCl > 10-29 mL/min) *Enoxaparin/Lovenox 30 mg SQ BID (WT < 150 kg, CrCl > 30 mL/min) AND *Sequential Compression Device (SCD) Assessment and Plan - Assessment (1) Heart palpitations Code(s): R00.2 - Palpitations Status: Acute Plan: Admitted chest pain center. ACS ruled out with 3 sets of EKGs and cardiac enzymes. Will be seen and evaluated by Dr. Adam London. Telemetry reviewed. Likely proceed with lexiscan due to history of coronary artery disease , no recent testing, and no assistant plant control operator to follow up with upon discharge. This will be determined after evaluation by assistant plant control operator. Discussed possible Holter monitor if palpations persist. Instructed to follow up with her PCP upon discharge. (2) Hx of CABG Code(s): Z95.1 - Presence of aortocoronary bypass graft Status: Chronic Plan: Continue statin, aspirin, and marichuy inhibitor. Instructed to establish with a assistant plant control operator due to history of coronary artery disease. (3) Cocaine abuse Code(s): F14.10 - Cocaine abuse, uncomplicated Status: Acute Plan: Denies creation of drug use. Toxic screen positive. (4) Type II diabetes mellitus Code(s): E11.9 - Type 2 diabetes mellitus without complications Status: Chronic Plan: Hold metformin. Encouraged weight loss and increasing daily activity. Will resume metformin after further testing complete. (5) Asthma Code(s): J45.909 - Unspecified asthma, uncomplicated Status: Acute Plan: Continue pro-air. (6) Tobacco abuse Code(s): Z72.0 - Tobacco use Status: Chronic Plan: Supported tobacco cessation decision. Encouraged her to consider vaping cessation in addition to tobacco cessation. H&P: Quality - VTE Deep Vein Thrombosis/Pulmonary Embolism Present on Admission: Yes (4) Type II diabetes mellitus Qualifiers: Diabetes mellitus prison insulin use: without prison use Diabetes mellitus complication status: without complication Qualified Code(s): E11.9 - Type 2 diabetes mellitus without complications (5) Asthma Qualifiers: Asthma severity: unspecified severity Asthma persistence: unspecified Asthma complication type: unspecified Qualified Code(s): J45.909 - Unspecified asthma, uncomplicated
[2018-05-12] MEDS ORDERED: Regadenoson Inj 0.4 MG/5 ML Syringe IV.PUSH ONE (12:24)
--- NOTE | 2018-05-12 13:09 | TR ---
Date Performed: 05/12/2018 Time Performed: 12:28:44 DOCTOR: Adam London DRUG LIST: CLINICAL HISTORY: REASON FOR TEST: REASON FOR ENDING: OBSERVATION: CONCLUSION: COMMENTS: Lexiscan stress test was performed under standard four minute protocol. Radionuclide was injected one minute prior to ending the test. No electrocardiographic abormalities were present t o suggest ischemia. Nuclear imaging and interpretation are pending.
--- NOTE | 2018-05-12 14:40 | NM ---
EXAM DATE: 05/12/2018 2:30 PM EDT AGE/SEX: 62 years / Female INDICATIONS:Angina. . Palpitations with dyspnea, dizziness and headache. CLINICAL DATA: This is the patient's initial encounter. Patient reports that signs and symptoms have been present for 2 weeks and indicates a pain score of 3/10. MEDICAL/SURGICAL HISTORY: Diabetes mellitus type II. Hypertension. Diverticulosis. Hysterecto my. Cholecystectomy. CABG. COMPARISON: No prior exams available for comparison. DOSE: 8.2 mCi Tc 99m Myoview at stress 27.3 mCi [id number] at rest 0.4 mg Lexiscan STRESS SYMPTOMS: Dyspnea. EJECTION FRACTION: 65 % TECHNIQUE: The patient underwent pharmacologic stress with infusion of prescribed dose. Continuous ECG tracing was monitored during stress. Gated SPECT imaging was performed after stress and conventi onal SPECT imaging was performed at rest. The examination was performed on a SPECT/CT scanner, both attenuation and non-corrected datasets were reviewed. FINDINGS: Distribution: The maximum perfused segment at stress is in the septal wall. Perfusion Study: The pattern of perfusion at stress is within normal limits. Gated Study: There are intact wall motion and wall thickening without hypokinetic or dyskinetic segm ents. The ejection fraction is calculated at 65%. RISK CATEGORY: Low (<1% Annual Motality Rate) CONCLUSION: Negative examination. Electronically signed by: Todd Lin MD 05/12/2018 2:39 PM EDT
--- NOTE | 2018-05-12 15:02 | ECG ---
Date Performed: 05/11/2018 Time Performed: 23:23:35 PTAGE: 62 years EKG: Sinus rhythm NONSPECIFIC T-WAVE ABNORMALITY BORDERLINE ECG PREVIOUS TRACING : 05/11/2018 16.14 Since previous tracing, no significant change noted DOCTOR: Adam London Interpretating Date/Time 05/12/2018 15:00:20
--- NOTE | 2018-05-12 15:13 | ECG ---
Date Performed: 05/11/2018 Time Performed: 16:14:33 PTAGE: 62 years EKG: Sinus rhythm POSSIBLE LEFT ATRIAL ENLARGEMENT NONSPECIFIC T-WAVE ABNORMALITY BORDERLINE ECG Since PREVIOUS TRACING , no significant change noted DOCTOR: Adam London Interpretating Date/Time 05/12/2018 15:11:48
[2018-05-12] MEDS ORDERED: Montelukast 10 MG Tablet PO SCH (21:00)
[2018-05-13] MEDS ORDERED: Aspirin 325 MG Tablet PO SCH (09:00)
== END 2018-05-12 16:33 | disposition home or self-care (01) ==
LOC: NEPD 15:41 → NEPHCDU 15:41 → NEDA 15:41 → NEPHCDU 21:57
DX: M06.9 Rheumatoid arthritis, unspecified; E78.00 Pure hypercholesterolemia, unspecified; Z90.49 Acquired absence of other specified parts of digestive tract; Z82.49 Family history of ischemic heart disease and other diseases of the circulatory system; J45.909 Unspecified asthma, uncomplicated; F32.9 Major depressive disorder, single episode, unspecified; F17.210 Nicotine dependence, cigarettes, uncomplicated; I25.10 Atherosclerotic heart disease of native coronary artery without angina pectoris; Z79.899 Other long term (current) drug therapy; R94.31 Abnormal electrocardiogram [ECG] [EKG]; I26.99 Other pulmonary embolism without acute cor pulmonale; Z95.1 Presence of aortocoronary bypass graft; Z79.84 Long term (current) use of oral hypoglycemic drugs; Z90.710 Acquired absence of both cervix and uterus; E11.9 Type 2 diabetes mellitus without complications; F14.10 Cocaine abuse, uncomplicated; E78.5 Hyperlipidemia, unspecified; I10 Essential (primary) hypertension